=== PATIENT | female | born 1955 | race Caucasian/White ===

== ENCOUNTER 2017-12-03 10:08 | Outpatient (CLI) | payer OTHER ==
[~2017-12-03 10:08] MED LIST: ACTICAL SOFTGEL1 CAP PO; EFFEXOR XR75 MG PO; LIPITOR20 MG PO; SYNTHROID112 MCG PO
== END 2017-12-03 17:00 | disposition home or self-care (01) ==
LOC: SONOGRAMA 10:08 → MAMO-SONO 10:15 → SONOGRAMA 17:00
DX: R10.84 Generalized abdominal pain (principal)

== ENCOUNTER → 2017-12-04 | Outpatient (CLI) | payer OTHER | END | disposition home or self-care (01) | LOC: LAB 08:07 | DX: D47.2 Monoclonal gammopathy (principal); E03.8 Other specified hypothyroidism; E78.2 Mixed hyperlipidemia; D50.8 Other iron deficiency anemias; D51.8 Other vitamin B12 deficiency anemias; I10 Essential (primary) hypertension; D55.0 Anemia due to glucose-6-phosphate dehydrogenase [G6PD] deficiency; D51.1 Vitamin B12 deficiency anemia due to selective vitamin B12 malabsorption with proteinuria; D51.0 Vitamin B12 deficiency anemia due to intrinsic factor deficiency; E06.3 Autoimmune thyroiditis; N39.0 Urinary tract infection, site not specified ==

== ENCOUNTER 2018-01-11 06:48 | Outpatient (CLI) | payer OTHER | END 2018-01-11 06:56 | disposition home or self-care (01) | LOC: LAB 06:48 | DX: D47.2 Monoclonal gammopathy (principal); E03.8 Other specified hypothyroidism; E78.2 Mixed hyperlipidemia; R94.5 Abnormal results of liver function studies; D50.8 Other iron deficiency anemias; D51.8 Other vitamin B12 deficiency anemias ==

== ENCOUNTER → 2018-04-09 08:07 | Outpatient (CLI) | payer OTHER | END | disposition home or self-care (01) | LOC: LAB 08:07 | DX: D47.2 Monoclonal gammopathy (principal); R94.5 Abnormal results of liver function studies; R74.8 Abnormal levels of other serum enzymes; E78.2 Mixed hyperlipidemia; E03.8 Other specified hypothyroidism; D50.8 Other iron deficiency anemias; D51.8 Other vitamin B12 deficiency anemias; I10 Essential (primary) hypertension; C90.00 Multiple myeloma not having achieved remission ==